=== PATIENT | male | born 1960 | race Caucasian/White ===

== ENCOUNTER → 2024-11-24 | Outpatient (CLI) | payer BC, SELFPAY ==
[2024-11-25 12:08] LABS: PSA, Free 1.85 ng/mL; PSA, Free % 20.2 % (.)
== END | disposition home or self-care (01) ==
LOC: LAB 12:12
PROVIDERS: PCP Family Medicine; Referring Provider Nurse Practitioner; Visit Provider Nurse Practitioner
DX: R97.20 Elevated prostate specific antigen [PSA] (principal)
CPT/HCPCS: 36415; 84153; 84154

== ENCOUNTER → 2024-12-22 | Outpatient (CLI) | payer BC, SELFPAY ==
--- NOTE | 2024-12-22 09:01 | MRI_ITS ---
PROCEDURE: PELVIS W/WO CONTRAST REASON FOR EXAM: Elevated PSA. TECHNIQUE: Multiplanar, multisequence MRI of the prostate was performed before and following intravenous gadolinium-based contrast. Axial, coronal, and sagittal high-resolution T2-weighted images, axial T1-weighted images, diffusion-weighted images with high B value, and dynamic postcontrast fat saturated T1-weighted images were performed. CONTRAST: Clariscan 21 mL intravenous COMPARISON: None. FINDINGS: Prostate Volume: 101.3 mL (prostate size 6.1 cm in transverse dimension by 5.2 cm in AP dimension by 6.1 cm craniocaudally) Peripheral Zone: No abnormality on ADC and high b-value DWI. Transitional Zone: Multiple BPH nodules without suspicious abnormality. Seminal vesicles: 15 mm cyst in the right seminal vesicles, benign, which are otherwise unremarkable. Neurovascular bundles: Normal and symmetric. Lymph nodes: No lymphadenopathy is identified. Bone marrow: No suspicious lesions. Miscellaneous: Small fat containing inguinal hernias. Mild urinary bladder trabeculation with probable thin layer of sediment dependently, 6 mm thickness. Posterior/inferior urinary bladder diverticulum measuring 2.5 x 1.4 cm. Rectum is unremarkable. Fat containing umbilical hernia noted. MRI/Pelvis W/WO Contrast IMPRESSION: 1. Prostatomegaly and BPH. No suspicious findings to suggest neoplasia. 2. Urinary bladder trabeculation, mild, with small 2.5 cm posterior bladder di verticulum. Reading Location: [facility]
--- NOTE | 2024-12-22 09:03 | RAD_ITS ---
EXAM: ORBITS FOR FOREIGN BODY CLINICAL HISTORY: MRI screening. COMPARISON: None. TECHNIQUE: Two views were obtained. FINDINGS: No foreign body is seen RAD/Orbits for Foreign Body IMPRESSION: No foreign body seen. Reading Location: [id number]
== END | disposition home or self-care (01) ==
PROVIDERS: PCP Nurse Practitioner Primary Care; Referring Provider Nurse Practitioner; Visit Provider Nurse Practitioner
DX: R97.20 Elevated prostate specific antigen [PSA] (principal)
CPT/HCPCS: 70030; 72197; A9575